=== PATIENT | male | born 1995 ===

== ENCOUNTER 2020-02-11 10:39 | Outpatient (REF) | payer MEDICARE, MEDICAID, SELFPAY | END 2020-02-11 10:40 | disposition home or self-care (01) | LOC: HO.LAB 10:39 | PROVIDERS: Visit Provider Internal Medicine | DX: Z20.828 Contact with and (suspected) exposure to other viral communicable diseases (principal) | CPT/HCPCS: U0003 ==

== ENCOUNTER 2020-11-02 09:39 | Emergency (ER) | payer MEDICARE, MEDICAID, SELFPAY ==
[2020-11-02 09:57] VITALS: BP 122/65; PULSE 71; RESP 16; TEMP 36.7; O2SAT 98; BMI 23.1
[2020-11-02 11:35] LABS: Glucose Urine UA NEG (NEG); Leukocyte Esterase Urine NEG (NEG); Nitrite Urine NEG (NEG); Specific Gravity - Urine 1.015 (1.005-1.025); Urine Blood NEG (NEG); Urine Ketones NEG (NEG); Urine Protein NEG (NEG-TRACE)
[2020-11-02] MEDS: cefTRIAXone sodium 500 MG, Lidocaine HCl 1 % MPF 1 ML IM (11:38)
[2020-11-02 11:51] LABS: Appearance Urine HAZY; Color Urine YELLOW
[2020-11-02 12:07] LABS: Syphilis Screen Nonreactive (Nonreactive)
--- NOTE | 2020-11-02 12:14 | ED_ITS ---
HPI - Male Genitourinary General Chief complaint: Urogenital-Male Stated complaint: groin injury Time Seen by Provider: 11/02/20 10:24 Source: patient Mode of arrival: ambulatory Limitations: no limitations History of Present Illness HPI Narrative: Patient presents to the ED for purple discoloration at the base of the penis. Patient states he had rough sex yesterday and woke up with the purple discoloration at the base of penis. Patient denies any penile pain. Patient denies any blood in urine. Patient denies any penile discharge. Patient denies any testicular pain. Patient states condom broke. Related Data Previous Rx's Medication Instructions Recorded doxycycline hyclate 100 mg PO BID #14 tab 11/02/20 Allergies Allergy/AdvReac Type Severity Reaction Status Date / Time amoxicillin [Amoxicillin] Allergy Unknown RASH ON Verified 11/02/20 09:59 BODY Review of Systems Review of Systems: Yes all other systems are reviewed and are negative Constitutional: Constitutional: Reports as per HPI and Reports no additional constitutional complaints Eyes: Eyes: Reports as per HPI and Reports no additional eye complaints ENT: Reports system reviewed and no additional complaints, except as documented and Reports as per HPI Cardiovascular: Cardiovascular: Reports as per HPI and Reports no additional cardiovascular complaints Respiratory: Respiratory: Reports as per HPI and Reports no additional respiratory complaints Gastrointestinal: Gastrointestinal: Reports as per HPI and Reports no additional gastrointestinal complaints Genitourinary: Genitourinary: Reports no additional male genitourinary complaints and Reports as per HPI Comments: Purple discoloration at base of penis Musculoskeletal: Musculoskeletal: Reports no additional musculoskeletal complaints and Reports as per HPI Neurologic: Reports system reviewed and no additional complaints, except as documented and Reports as per HPI Psychiatric: Psychiatric: Reports no additional psychiatric complaints and Reports as per HPI [facility] Past Medical History Medical History (Updated 11/02/20 @ 12:32 by JUVENCIO Hyman) No known health problems Social History Social History Advance Directives: Yes Advance Directives Information Provided: Yes Advance Directives on File: No Physical Exam Vital Signs: Vital Signs: Last Vital Signs Temp 98.1 F 11/02/20 09:57 Pulse 71 11/02/20 09:57 Resp 16 11/02/20 09:57 BP 122/65 11/02/20 09:57 Pulse Ox 98 11/02/20 09:57 Body Mass Index 23.1 Const: General: cooperative, healthy appearing, comfortable, no acute distress, well developed, alert, awake and Physically active Orientation/consciousness: patient oriented x3 HENMT: Head: Yes normal to inspection, Yes No palpable skull fracture present, Yes normocephalic, Yes atraumatic and No abrasion Eyes: General: appearance normal, both eyes and all related structures Neck: Neck: Yes normal visual inspection, Yes full ROM, Yes no lymphadenopathy, Yes no meningeal signs, Yes trachea midline, Yes supple and No tender Chest: Chest palpation & inspection: normal inspection of the chest and normal palpation of entire chest wall Resp: Effort & Inspection: normal respiratory effort and able to speak in complete sentences Cardio: Jugular venous distension: no JVD Heart sounds: S1 normal heart sound present and S2 normal heart sound present GI: Inspection: Yes normal to inspection and No abdominal wall ecchymosis Palpation (GI): Soft to palpation, not firm, nontender, no guarding and not rigid : General: Yes Bimanual renal exam normal bilaterally, No bladder normal to inspection, No CVA tenderness and Yes no CVA tenderness Male General Exam: Yes ecchymosis (Small circular area of ecchymosis on base of penis pain) and No Genital lesions present Penis: uncircumcised, no condylomata, ecchymosis (Small circular area at base of penis.), not edematous, not erythematous, no masses, no nodules, no papules, no pustules, no vesicles, foreskin retracts, no paraphimosis, no phimosis, no swelling, no ulcerations and No Genital lesions present Meatus: meatus normal Scrotum: scrotum normal Testes: Testes normal Male genitals images: 1. Small area of ecchymosis at the base of the penis is that is nontender. Penis is not swollen. The penis negative for any ecchymosis, lesions, redness, vesicular lesions, papules, Chancre, ulcerated lesions, or groin lymphadenopathy. Scrotum testicles normal. Penis negative for deformity. Back/Spine/Pelvis: Back: no CVA tenderness, No CVA tenderness and No back tenderness Skin: General skin exam: no rashes or lesions noted and elasticity normal Neuro: General: patient oriented x3, gait normal, no meningeal signs and CN's II-XI intact bilaterally Cranial nerves: Yes CN's II-XII intact bilaterally Extrem: General: Yes normal to inspection and Yes full ROM Psych: Appearance: grossly normal, well kempt and not disheveled Course Course Course Narrative: History physical exam indicates ecchymosis on penis to trauma but not concerned for penile fracture. Penis is not swollen or deformed. Patient has concern for STD due to condom breaking and continued to have sex without condoms. Reevaluation(s) Reevaluation #1: History physical exam does not indicate syphilis, LGV, chancroid, or herpes, but will send for RPR, HSV, CTNG. Ceftriaxone ordered. Patient will be sent for prescription for doxycycline. Patient informed to follow-up with [facility] for HIV testing due to unprotected sexual exposure. Patient educated on HIV prophylaxis window. Time: 12:30 MDM - Male Genitourinary MDM Narrative Medical decision making narrative: Penile contusion Lab Data Labs: Lab Results 11/02/20 11/02/20 11/02/20 Range/Units 11:14 11:14 11:14 Urine Color YELLOW Urine Appearance HAZY Urine pH 7.0 (5.0-8.0) Ur Specific [place] 1.015 (1.005-1.025) Urine Protein NEG (NEG-TRACE) MG/DL Urine Glucose (UA) NEG (NEG) MG/DL Urine Ketones NEG (NEG) MG/DL Urine Blood NEG (NEG) Urine Nitrite NEG (NEG) Ur Leukocyte Esterase NEG (NEG) T.pallidum Ab (EIA) Nonreactive (Nonreactive) Chlam trachomat DNA PCR NOT DETECTED (Not Detect.) N.gonorrhoeae DNA (PCR) NOT DETECTED (Not Detect.) Discharge Plan Discharge Clinical Impression: Contusion Patient Disposition: Home, Self-Care Instructions: Safe Sex Practices (ED), Contusion in Adults (ED) Additional Instructions: Return to the ED immediately for penile swelling, blood in urine, testicular pain, worsening bruising, penile lesions, penile discharge, abdominal pain, flank pain, fever, chills, or any other concerning symptoms. Prescriptions: New doxycycline hyclate 100 mg tablet 100 mg PO BID Qty: 14 RF: 0 Interventions: ED Discharge Assessment Last Done: 11/02/20 12:40 Discharge Date/Time: 11/02/20 12:52 Print Language: Persian
[2020-11-02 13:44] LABS: CT PCR NOT DETECTED (Not Detect.); NG PCR NOT DETECTED (Not Detect.)
== END 2020-11-02 12:52 | disposition home or self-care (01) ==
PROVIDERS: Physician Assistant; Emergency Provider Emergency Medicine Emergency Medical Services
DX: S30.21XA Contusion of penis, initial encounter (principal); X50.3XXA Overexertion from repetitive movements, initial encounter; Y93.89 Activity, other specified; Y92.9 Unspecified place or not applicable; Y99.9 Unspecified external cause status; Z11.3 Encounter for screening for infections with a predominantly sexual mode of transmission
CPT/HCPCS: 36415; 81003; 86780; 87255; 87491; 87591; 96372; 99283; 99284; J0696

== ENCOUNTER 2020-11-17 18:22 | Emergency (ER) | payer MEDICARE, MEDICAID, SELFPAY ==
[2020-11-17 19:19] VITALS: BP 115/62; PULSE 68; RESP 16; TEMP 36.8; O2SAT 100; BMI 23.8
--- NOTE | 2020-11-17 20:38 | ED_ITS ---
HPI - Ear Problem General Chief complaint: Ear Problems Stated complaint: Pain in left ear Time Seen by Provider: 11/17/20 20:31 Source: patient Mode of arrival: ambulatory Limitations: no limitations History of Present Illness HPI Narrative: Patient presents to ED for left ear pain. Patient states recently [place] and now having left ear pain. Patient denies any drainage from left ear, blood, fever, or chills. Related Data Previous Rx's Medication Instructions Recorded doxycycline hyclate 100 mg tablet 100 mg PO BID #14 tab 11/02/20 carbamide peroxide 6.5 % ear drops 5 drp OTIC (EAR) LEFT Q12H 4 Days 11/17/20 (Debrox) #18 ml cefuroxime axetil 500 mg tablet 500 mg PO Q12H 7 Days #14 tab 11/17/20 Allergies Allergy/AdvReac Type Severity Reaction Status Date / Time amoxicillin [Amoxicillin] Allergy Unknown RASH ON Verified 11/17/20 19:23 BODY Review of Systems Review of Systems: Yes all other systems are reviewed and are negative Constitutional: Constitutional: Reports as per HPI and Reports no additional constitutional complaints Eyes: Eyes: Reports as per HPI and Reports no additional eye complaints ENT: Reports system reviewed and no additional complaints, except as documented and Reports as per HPI Cardiovascular: Cardiovascular: Reports as per HPI and Reports no additional cardiovascular complaints Respiratory: Respiratory: Reports as per HPI and Reports no additional respiratory complaints Gastrointestinal: Gastrointestinal: Reports as per HPI and Reports no additional gastrointestinal complaints Genitourinary: Genitourinary: Reports no additional male genitourinary complaints and Reports as per HPI Musculoskeletal: Musculoskeletal: Reports no additional musculoskeletal complaints and Reports as per HPI Integumentary/Breasts: Skin/Breast: Reports system reviewed and no additional complaints, except as docu and Reports as per HPI Neurologic: Reports system reviewed and no additional complaints, except as documented and Reports as per HPI Psychiatric: Psychiatric: Reports no additional psychiatric complaints and Reports as per HPI PMFSH Past Medical History Medical History (Updated 11/17/20 @ 20:52 by JUVENCIO Hyman) No known health problems Social History Social History Advance Directives: No Advance Directives Information Provided: No Physical Exam Vital Signs: Vital Signs: Last Vital Signs Temp 98.2 F 11/17/20 19:19 Pulse 68 11/17/20 19:19 Resp 16 11/17/20 19:19 BP 115/62 11/17/20 19:19 Pulse Ox 100 11/17/20 19:19 Body Mass Index 23.8 Const: General: cooperative, healthy appearing, comfortable, no acute distress, well developed, alert, awake and Physically active Orientation/consciousness: patient oriented x3 HENMT: Other: Left ear: Left ear external canal negative for any erythema, pus discharge, or swelling. Not able to visualize tympanic membrane due to a block of cerumen impaction. Head: Yes normal to inspection, Yes No palpable skull fracture present, Yes normocephalic and Yes atraumatic Ears: hearing grossly normal bilaterally, external ears normal, TM's normal bilaterally, TM normal on the right, EAC's normal, mastoids normal and no periauricular adenopathy Eyes: General: appearance normal, both eyes and all related structures Neck: Neck: Yes normal visual inspection, Yes full ROM, Yes no lymphadenopathy, Yes no meningeal signs, Yes trachea midline, Yes supple and No tender Chest: Chest palpation & inspection: normal inspection of the chest and normal palpation of entire chest wall Resp: Effort & Inspection: normal respiratory effort and able to speak in complete sentences Auscultation: clear to auscultation bilaterally Cardio: Jugular venous distension: no JVD Heart sounds: S1 normal heart sound present and S2 normal heart sound present GI: Inspection: Yes normal to inspection and No abdominal wall ecchymosis Palpation (GI): Soft to palpation, not firm, nontender and no guarding : General: No CVA tenderness and Yes no CVA tenderness Back/Spine/Pelvis: Back: no CVA tenderness, No CVA tenderness and No back tenderness Skin: General skin exam: no rashes or lesions noted and elasticity normal Neuro: General: patient oriented x3, no meningeal signs and CN's II-XI intact bilaterally Cranial nerves: Yes CN's II-XII intact bilaterally Extrem: General: Yes normal to inspection and Yes full ROM Psych: Appearance: grossly normal, well kempt and not disheveled Course Course Course Narrative: Ear pain. Reevaluation(s) Reevaluation #1: Patient will be discharged with Debrox for the inner cerumen impaction. Patient will be discharged with oral antibiotics due to swimming and having left ear pain. Physical exam not indicating otitis externa. But cannot rule out otitis media. Time: 20:50 MDM - Ear MDM Narrative Medical decision making narrative: 20:50 Discharge Plan Discharge Clinical Impression: Otitis media, Cerumen impaction Patient Disposition: Home, Self-Care Instructions: Ear Infection (ED) Additional Instructions: You will be discharged with oral antibiotics. Recommend completing course of oral antibiotics 1st before using Debrox. Return to the ED for any swelling or redness in front/behind ear, severe pain, ear discharge, headache, fever, chills, dizziness, or any other concerning symptoms. Please follow-up with PCP Prescriptions: New cefuroxime axetil 500 mg tablet 500 mg PO Q12H 7 Days Qty: 14 RF: 0 carbamide peroxide [Debrox] 6.5 % drops 5 drp otic (ear) left Q12H 4 Days Qty: 18 RF: 0 No Action doxycycline hyclate 100 mg tablet 100 mg PO BID Qty: 14 RF: 0 Interventions: ED Discharge Assessment Last Done: 11/17/20 21:13 Discharge Date/Time: 11/17/20 21:14 Print Language: Armenian
== END 2020-11-17 21:14 | disposition home or self-care (01) ==
PROVIDERS: Emergency Provider Emergency Medicine
DX: H66.92 Otitis media, unspecified, left ear (principal); H61.22 Impacted cerumen, left ear
CPT/HCPCS: 99283

== ENCOUNTER 2021-10-18 14:03 | Emergency (ER) | payer MEDICARE, MEDICAID, SELFPAY ==
[2021-10-18 16:35] VITALS: BP 117/66; PULSE 61; RESP 16; TEMP 36.6; O2SAT 99; BMI 26.2
--- NOTE | 2021-10-18 16:42 | ED_ITS ---
HPI - Wound/Laceration General Chief Complaint: Wound/Laceration Stated Complaint: infected tattoo right thigh Time Seen by Provider: 10/18/21 16:42 Source: patient Mode of arrival: ambulatory Limitations: no limitations History of Present Illness HPI narrative: 26-year-old male presents to the ER with redness, pain, swelling of a tattoo to his right anterior thigh that his cousin did 9 days ago. He had 2 other tattoos was left upper extremity at a professional shop about 3 weeks ago and a healed appropriately. The tattoo to his right anterior thighs started getting red, irritated and pain fall a few days after it was done. He is concerned about infection. There is also some scabbing and he reports some foul discharge acute days ago. No fever or chills. No red streaking down the leg. Onset (ago): day(s) Extremity Location: right: thigh Place: home Patient tetanus UTD: Yes Context: accidental Associated symptoms: pain Related Data Previous Rx's Medication Instructions Recorded cephalexin 500 mg capsule 500 mg PO Q6H 7 days #28 caps 10/18/21 doxycycline hyclate 100 mg tablet 100 mg PO BID #14 tabs 10/18/21 Allergies Allergy/AdvReac Type Severity Reaction Status Date / Time amoxicillin [Amoxicillin] Allergy Unknown RASH ON Verified 02/17/21 09:13 BODY Review of Systems Review of Systems: Constitutional: No Fever, No Chills Cardiovascular: No Chest Pain, No SOB Respiratory: No Cough, No Sputum Gastrointestinal: No Nausea, No Vomiting, No abdominal Pain Musculoskeletal: No joint pain, No Myalgias Skin: + Skin Lesions, No rash, +Skin erythema surrounding the tattoo Neuro: No Weakness, No Numbness, No Dizziness, No Headache Heme/Lymph: No Bruising, No Lymphadenopathy PMFSH Past Medical History Medical History (Updated 10/18/21 @ 16:47 by JUVENCIO Cook) No known health problems Surgical History (Updated 02/17/21 @ 09:16 by LIZA Sanchez) No pertinent past surgical history Family History Family History (Updated 02/17/21 @ 09:16 by LIZA Sanchez) Mother No problems noted. Father No problems noted. Social History Social History (Updated 02/17/21 @ 09:17 by LIZA Sanchez) Housing: Apartment Alcohol intake: current Alcohol intake frequency: a few times a month Patient Tobacco Use Status: Never used Tobacco e-Cigarette/Vaping Use: Never Used Second Hand Smoke Exposure: No Substance Use Type: Marijuana service: No Current occupational status: unemployed Cognitive needs: No Hearing needs: No Vision needs: No Physical Exam Vital Signs: Vital Signs: Last Vital Signs Temp 97.8 F 10/18/21 16:35 Pulse 61 10/18/21 16:35 Resp 16 10/18/21 16:35 BP 117/66 10/18/21 16:35 Pulse Ox 99 10/18/21 16:35 O2 Del Method 10/18/21 16:35 BMI result Body Mass Index 26.2 Appearance: Alert. Oriented X3. No acute distress. HEENT: normal inspection CVS: Normal heart rate and rhythm. Pulses normal. Respiratory: No respiratory distress. Skin: Skin warm and dry. Normal skin color. Normal skin turgor. No rashes. Extremities: Black tattoo of the distal right anterior thigh, with raised ink and surrounding erythema and warmth. Scabbing centrally without any purulent discharge. There is skin peeling and dryness. No lymphangitis. No inguinal lymphadenopathy. Neuro: Oriented X 3. Grossly normal, nonfocal Course Course Course Narrative: 26-year-old male presents to the ER for evaluation of a tattoo infection that was done in the home. Clinical presentation and examination are consistent with the cellulitis. Will need to treat for community-acquired MRSA with doxy cycline as well as Keflex. No systemic signs of infection at this time. Patient was counseled on signs and symptoms of worsening infection and need to return to the emergency department if symptoms worsen. At this time is stable for discharge home with oral antibiotics and outpatient follow-up. He will call his PCP this week for follow-up. Discharge Plan Discharge Clinical Impression: Cellulitis Patient Disposition: Home, Self-Care Instructions: Cellulitis (ED) Additional Instructions: Take the prescribed antibiotics as directed. Recommend topical antibiotics white man as well like Neosporin. While you're on doxycycline, you cannot be in the sun. Your outside make sure wearing SPF 30 or greater. Interaction with the sun while on this antibiotic can cause a rash. Do not swim and likes the broderick will your wound is healing. Do not pick at the scabs. If you develop new or worsening symptoms call 911 or come back to the ER for further evaluation. Prescriptions: New cephalexin 500 mg capsule 500 mg PO Q6H 7 Days Qty: 28 0RF doxycycline hyclate 100 mg tablet 100 mg PO BID Qty: 14 0RF
== END 2021-10-18 17:32 | disposition home or self-care (01) ==
PROVIDERS: Emergency Provider Internal Medicine
DX: S71.111A Laceration without foreign body, right thigh, initial encounter (principal); L03.115 Cellulitis of right lower limb; X58.XXXA Exposure to other specified factors, initial encounter; Y93.9 Activity, unspecified; Y92.9 Unspecified place or not applicable; Y99.9 Unspecified external cause status; Z79.899 Other long term (current) drug therapy
CPT/HCPCS: 99282; 99283

== ENCOUNTER 2021-12-01 10:20 | Emergency (ER) | payer MEDICARE, MEDICAID, SELFPAY ==
[2021-12-01 10:25] VITALS: BP 121/72; PULSE 78; RESP 19; TEMP 36.6; O2SAT 100; BMI 27.0
--- NOTE | 2021-12-01 12:17 | ED_ITS ---
HPI - Dental/Oral General Chief complaint: Dental/Oral Stated complaint: cracked tooth Time Seen by Provider: 12/01/21 12:09 Source: patient Mode of arrival: ambulatory Limitations: no limitations History of Present Illness MD Complaint: tooth pain and tooth injury Location: Tooth # (17) Onset (ago): day(s) (2) Duration: constant Severity: severe Relieving factors: nothing Exacerbating factors: chewing, cold, heat and drinking fluids Context: trauma (mechanism) (cracked tooth on something he was eating) Associated symptoms: gum swelling Treatment prior to arrival: none Related Data Previous Rx's Medication Instructions Recorded cephalexin 500 mg capsule 500 mg PO Q6H 7 days #28 caps 10/18/21 doxycycline hyclate 100 mg tablet 100 mg PO BID #14 tabs 10/18/21 clindamycin HCl 300 mg capsule 300 mg PO TID 7 days #21 caps 12/01/21 ibuprofen 600 mg tablet 600 mg PO Q6H PRN pain #30 tabs 12/01/21 tramadol 50 mg tablet 50 mg PO TID PRN pain #10 tabs 12/01/21 Allergies Allergy/AdvReac Type Severity Reaction Status Date / Time amoxicillin [Amoxicillin] Allergy Unknown RASH ON Verified 02/17/21 09:13 BODY Review of Systems Review of Systems: Constitutional : No Fever, No Chills ENT/Mouth : No swallowing difficulty, no change in voice, positive dental pain, positive jaw pain, no facial swelling Eyes: No Eye Pain, No Swelling Cardiovascular : No Chest Pain, No SOB Respiratory : No Cough, No Sputum Gastrointestinal : No Nausea, No Vomiting, No Diarrhea Genitourinary : No Dysuria Musculoskeletal : No Myalgias Skin : No rash Neuro : No Weakness, No Numbness, No Headache PMFSH Past Medical History Medical History No known health problems Surgical History (Updated 02/17/21 @ 09:16 by LIZA Sanchez) No pertinent past surgical history Family History Family History (Updated 02/17/21 @ 09:16 by LIZA Sanchez) Mother No problems noted. Father No problems noted. Social History Social History Housing: Apartment Alcohol intake: current Alcohol intake frequency: a few times a month Patient Tobacco Use Status: Never used Tobacco e-Cigarette/Vaping Use: Never Used Second Hand Smoke Exposure: No Substance Use Type: Marijuana Advance Directives: No Advance Directives Information Provided: No service: No Current occupational status: unemployed Cognitive needs: No Hearing needs: No Vision needs: No Physical Exam Vital Signs: Vital Signs: Last Vital Signs Temp 98 F 12/01/21 10:25 Pulse 78 12/01/21 10:25 Resp 19 12/01/21 10:25 BP 121/72 12/01/21 10:25 Pulse Ox 100 12/01/21 10:25 O2 Del Method 12/01/21 10:25 BMI result Body Mass Index 27.0 Appearance: Alert. Oriented X3. No acute distress. Eyes: Pupils equal, round and reactive to light. ENT: L lower last molar moderate decay, surrounding erythema and mild fluctuance no chucho abscess, no trismus no signs of deeper infection Neck: Normal inspection. Neck supple. CVS: Pulses normal. Respiratory: No respiratory distress. Abdomen: atraumatic Skin: Skin warm and dry. Normal skin color. Normal skin turgor. Extremities: normal gait Neuro: Oriented X 3. No motor deficit. No sensory deficit. MDM - Dental/Oral MDM Narrative Medical decision making narrative: 26 yo male otherwise healthy here with c/o cracked tooth two days ago no signs of deeper space infection - has dentist appointment next week tooth is very dec ayed with surrounding inflammation but no chucho abscess- start on clindamycin, motrin, tramadol (no hx of seizures). refer to dentist Discharge Plan Discharge Clinical Impression: Dental caries, Fracture of tooth Patient Disposition: Home, Self-Care Instructions: Acute Dental Trauma (ED), Toothache (ED) Additional Instructions: return to ED for any worsening symptoms or concerns follow up with your dentist as scheduled Prescriptions: New ibuprofen 600 mg tablet 600 mg PO Q6H PRN (Reason: pain) Qty: 30 0RF clindamycin HCl 300 mg capsule 300 mg PO TID 7 Days Qty: 21 0RF tramadol 50 mg tablet 50 mg PO TID PRN (Reason: pain) Qty: 10 0RF Rx Instructions: partial fill is okay at patient's request No Action cephalexin 500 mg capsule 500 mg PO Q6H 7 Days Qty: 28 0RF doxycycline hyclate 100 mg tablet 100 mg PO BID Qty: 14 0RF Stand Alone Forms: Work/School Release
== END 2021-12-01 12:35 | disposition home or self-care (01) ==
PROVIDERS: Emergency Provider Emergency Medicine
DX: K03.81 Cracked tooth (principal); K02.9 Dental caries, unspecified; Z79.899 Other long term (current) drug therapy
CPT/HCPCS: 99282; 99283

== ENCOUNTER 2022-08-01 08:29 | Emergency (ER) | payer OTHER, SELFPAY ==
[2022-08-01 08:34] VITALS: BP 121/77; PULSE 78; RESP 18; TEMP 36.8; O2SAT 98; BMI 25.7
--- NOTE | 2022-08-01 08:51 | ED_ITS ---
Patient evaluated by me as well, patient with injury to left eye. Fluorescein exam revealed some uptake that was reticular and nature of the cornea. The rest visit slit-lamp exam was unremarkable. Patient will be started on topical antibiotics. He will be referred to Ophthalmology. HPI - Eye Problem General Chief complaint: Eye Problems Stated complaint: battery acid in eye work related Time Seen by Provider: 08/01/22 08:35 Source: patient and RN notes reviewed Mode of arrival: ambulatory Limitations: no limitations History of Present Illness HPI Narrative: This is a 26-year-old male who presents to the emergency department today with complaints of battery acid exposure to left eye which occurred just prior to arrival. Patient reports that he was scraping battery acid off of the head. W hen suddenly a krista of dried battery acid came up into his left eye. He immediately flushes left eye now for 15-20 minutes with water at work. He states that he has had a burning sensation in his left eye with associated blurred vision since the incident. He does not wear contact lenses. Denies history of similar instances in the past. Denies any other complaints or concerns at this time. MD chief complaint: eye pain, eye injury, vision change and foreign body Onset (ago): minute(s) Onset description: sudden Duration: constant Location: left eye Eye Symptoms: burning, pain, foreign body sensation and blurry vision Place: work Mechanism: chemical exposure Severity: moderate If Pain, Quality: burning Context: trauma Associated symptoms: none Treatments Prior to Arrival: irrigated eye Related Data Previous Rx's Medication Instructions Recorded cephalexin 500 mg capsule 500 mg PO Q6H 7 days #28 caps 10/18/21 doxycycline hyclate 100 mg tablet 100 mg PO BID #14 tabs 10/18/21 clindamycin HCl 300 mg capsule 300 mg PO TID 7 days #21 caps 12/01/21 ibuprofen 600 mg tablet 600 mg PO Q6H PRN pain #30 tabs 12/01/21 tramadol 50 mg tablet 50 mg PO TID PRN pain #10 tabs 12/01/21 erythromycin 5 mg/gram (0.5 %) eye 0.5 inch ophthalmic (eye) TID 7 08/01/22 ointment days #3.5 grams sulfacetamide sodium 10 % eye drops 1 drp ophthalmic (eye) Q3H 7 days 08/01/22 #15 mL Allergies Allergy/AdvReac Type Severity Reaction Status Date / Time amoxicillin [Amoxicillin] Allergy Unknown RASH ON Verified 02/17/21 09:13 BODY Review of Systems Review of Systems: Constitutional: No Weight loss, No Fever, No Chills ENT/Mouth: +blurred vision, +eye burning, No Ear Pain, No Nasal Congestion, No Sinus Pain, No Hoarseness, No sore throat, No Rhinorrhea, No Swallowing Difficulty Cardiovascular: No Chest Pain, No SOB Respiratory: No Cough, No Sputum, No Wheezing Gastrointestinal: No Nausea, No Vomiting, No Diarrhea, No Constipation, No Abdominal pain Genitourinary: No Dysuria, No Urinary Frequency, No Hematuria, No Urinary Incontinence/retention, No Urgency, No Flank Pain Musculoskeletal: No joint pain, No Myalgias, No Joint Swelling Skin: No Skin Lesions, No rash Neuro: No Weakness, No Numbness, No Paresthesias Yes all other systems are reviewed and are negative Constitutional: Constitutional: Reports as per [facility] Past Medical History Attestation statement: The following information was validated with the patient. Medical History No known health problems Surgical History No pertinent past surgical history Family History Family History Mother No problems noted. Father No problems noted. Social History Social History Housing: Apartment Alcohol intake: current Alcohol intake frequency: a few times a month Patient Tobacco Use Status: Never used Tobacco Smoked in Last 30 Days: No e-Cigarette/Vaping Use: Never Used Second Hand Smoke Exposure: No Use of substances other than those prescribed or required for medical reasons: Yes Substance Use Type: Marijuana Advance Directives: No Advance Directives Information Provided: Yes service: No Current occupational status: unemployed Cognitive needs: No Hearing needs: No Vision needs: No Physical Exam Vital Signs: Vital Signs: Last Vital Signs Temp 98.2 F 08/01/22 08:34 Pulse 78 08/01/22 08:34 Resp 18 08/01/22 08:34 BP 121/77 08/01/22 08:34 Pulse Ox 98 04/24/23 08:34 O2 Del Method Room Air 08/01/22 08:34 BMI result Body Mass Index 25.7 Const: General: cooperative, comfortable and no acute distress Orientation/consciousness: patient oriented x3 Limitations: no limitations HEENT: Head: Yes normal to inspection, Yes normocephalic and Yes atraumatic Ears: hearing grossly normal bilaterally General nose exam: Normal external nose present Face and sinus: Yes normal facial exam Mouth: Normal oral and palatal mucosa present, oropharynx normal and moist mucous membranes Throat: Yes posterior oropharynx normal Eyes: Other: Left eye, conjunctiva is noninjected, no foreign body to the left cornea visible to the naked eye. Fluroescein exam revealing : diffuse fluorescein uptake overlying the corneal, no obvious ulcerations or foreign body present. General: appearance normal, both eyes and all related structures Eyelids: Yes eyelids normal Conjunctivae: conjunctivae normal Sclerae: sclerae normal Pupils: Equal, round and reactive pupils present EOM: EOMs intact bilaterally Neck: Neck: Yes normal visual inspection, Yes full ROM and Yes no lymphadenopathy Lymphatic: no lymphadenopathy noted Chest: Chest palpation & inspection: normal inspection of the chest Resp: Effort & Inspection: normal respiratory effort and able to speak in complete sentences Auscultation: clear to auscultation bilaterally, no crackles, no rales, no rhonchi and no wheezes Cardio: Rate: regular rate Rhythm: regular rhythm Heart sounds: S1 normal heart sound present and S2 normal heart sound present GI: Inspection: Yes normal to inspection Skin: General skin exam: no rashes or lesions noted Trauma: no lacerations or abrasions Wounds: no wounds Neuro: General: patient oriented x3 and moves all extremities Cranial nerves: Yes Equal, round and reactive pupils present Extrem: General: Yes normal to inspection Right upper extremity: normal to inspection Left upper extremity: normal to inspection Right lower extremity: normal to inspection Left lower extremity: normal to inspection Course Reevaluation(s) Reevaluation #1: Dr. Real had returned phone call, recommended erythromycin ointment TID x 7 days. Medication sent to pharmacy. Advised to follow up in his office this week. Advised to call to make an appointment. Left detailed voicemail with these instructions per pt's request. Time: 12:04 Medications Administered Discontinued Medications Generic Name Dose Route Start Last Admin Trade Name Freq PRN Reason Stop Dose Admin Fluorescein Sodium 1 strip 08/01/22 09:03 08/01/22 09:48 Fluorescein Sodium Strip EYE-LEFT 08/01/22 09:04 1 strip ONCE ONE Administration Tetracaine HCl 1 drop 08/01/22 09:03 08/01/22 09:48 Tetracaine Hcl/Pf 0.5% Oph Judy 4 Ml Drops EYE-LEFT 08/01/22 09:04 1 drop ONCE ONE Administration Medical Decision Making Medical Decision Making MDM Narrative: 26-year-old male presents for evaluation left eye burning and blurred vision status post battery acid exposure. Upon arrival, patient is flushing his eye in the eyewash. pH is 7. Patient reporting blurred vision and burning sensation in his left eye. No hx of contact use. After eyeflush, patient's eye no longer burn ing but still has blurred vision, unable to perform visual acuity. Slit lamp examination performed with Dr. Barrow, diffuse fluoresceine uptake noted throughout the cornea. Repeat pH 7. Will treat with bleph-10 antibiotic eye drops and follow up with Dr. Hercules. Dr. Hercules currently in OR and have page out to him at this time. Advised that we will call patient later at [phone] for further instructions and follow up. Urged patient to return with any concerns. Differential Diagnosis Differential Diagnoses: The differential diagnosis associated with the presentation includes Chemical exposure left eye, iritis, corneal abrasion, corneal laceration, conjunctivitis Admission/Observation Consideration of admission/observation: Escalation of care including admission/observation considered Prescription Management I considered prescription management with: Antibiotic Procedures Procedure Narrative Procedure Narrative: Javier lens flush. 2 drops of proparacaine instilled in left eye. Fluoresceine stain achieved. See PE for findings. Patient tolerated well without complications. Discharge Plan Discharge Clinical Impression: Abrasion, corneal, Chemical exposure of eye Patient Disposition: Home, Self-Care Instructions: Corneal Abrasion (ED) Additional Instructions: Please use antibiotic eyedrops as directed. You will receive a call later with further instructions from Dr. Hercules (eye physician) Please always wear safety glasses while handling harsh chemicals. Please follow-up with Dr. Hercules for further guidance. Any new or worsening symptoms occur please return for re-evaluation. Prescriptions: New sulfacetamide sodium 10 % drops 1 drp ophthalmic (eye) Q3H 7 Days Qty: 15 0RF erythromycin 5 mg/gram (0.5 %) ointment 0.5 inch ophthalmic (eye) TID 7 Days Qty: 3.5 0RF No Action cephalexin 500 mg capsule 500 mg PO Q6H 7 Days Qty: 28 0RF doxycycline hyclate 100 mg tablet 100 mg PO BID Qty: 14 0RF ibuprofen 600 mg tablet 600 mg PO Q6H PRN (Reason: pain) Qty: 30 0RF clindamycin HCl 300 mg capsule 300 mg PO TID 7 Days Qty: 21 0RF tramadol 50 mg tablet 50 mg PO TID PRN (Reason: pain) Qty: 10 0RF Rx Instructions: partial fill is okay at patient's request Referrals: Kyle Hercules [Physician] - Stand Alone Forms: Work/School Release Interventions: ED Discharge Assessment Last Done: 08/01/22 11:25 Discharge Date/Time: 08/01/22 11:26
[2022-08-01] MEDS: Fluorescein Sodium STRIP 1 STRIP EYE-LEFT (09:48)
[2022-08-01] MEDS: Tetracaine HCl/PF 0.5% Oph Sol 4 ML DROPS 1 DROP EYE-LEFT (09:48)
== END 2022-08-01 11:26 | disposition home or self-care (01) ==
PROVIDERS: Emergency Provider Emergency Medicine
DX: S05.02XA Injury of conjunctiva and corneal abrasion without foreign body, left eye, initial encounter (principal); T54.2X1A Toxic effect of corrosive acids and acid-like substances, accidental (unintentional), initial encounter; Y92.59 Other trade areas as the place of occurrence of the external cause; Y93.89 Activity, other specified; Y99.0 Civilian activity done for income or pay
CPT/HCPCS: 99284

== ENCOUNTER → 2022-08-03 09:39 | Outpatient (BNVA) | payer OTHER, SELFPAY | PROVIDERS: Visit Provider Physician Assistant | DX: S05.02XA Injury of conjunctiva and corneal abrasion without foreign body, left eye, initial encounter (principal); T54.2X1A Toxic effect of corrosive acids and acid-like substances, accidental (unintentional), initial encounter; T26.62XA Corrosion of cornea and conjunctival sac, left eye, initial encounter | CPT/HCPCS: 99203 ==

== ENCOUNTER 2022-12-18 19:08 | Emergency (ER) | payer MEDICARE, SELFPAY ==
[2022-12-18 19:37] VITALS: BP 116/69; PULSE 96; RESP 16; TEMP 37.2; O2SAT 97; BMI 25.0
--- NOTE | 2022-12-18 19:37 | ED_ITS ---
HPI - Skin/Abscess/Foreign Bdy General Chief complaint: Allergic Reaction Stated complaint: knee/elbow infection Source: patient Mode of arrival: ambulatory Limitations: no limitations History of Present Illness HPI narrative: Patient is a 27-year-old male who presents emergency department for evaluation of a rash to the bilateral knees and elbows with onset over the past few days. He reports that the rash is mildly itchy, painful described as a discomfort. Reports subjective tactile fever, denies chills. Denies additional skin lesions/rashes, chest pain, shortness of breath, difficulty breathing, nausea, vomiting, abdominal pain. Denies any recent antibiotic usage. Denies any history of skin conditions including eczema Related Data Previous Rx's Medication Instructions Recorded cephalexin 500 mg capsule 500 mg PO Q6H 7 days #28 caps 10/18/21 doxycycline hyclate 100 mg tablet 100 mg PO BID #14 tabs 10/18/21 clindamycin HCl 300 mg capsule 300 mg PO TID 7 days #21 caps 12/01/21 ibuprofen 600 mg tablet 600 mg PO Q6H PRN pain #30 tabs 12/01/21 tramadol 50 mg tablet 50 mg PO TID PRN pain #10 tabs 12/01/21 erythromycin 5 mg/gram (0.5 %) eye 0.5 inch ophthalmic (eye) TID 7 08/01/22 ointment days #3.5 grams sulfacetamide sodium 10 % eye drops 1 drp ophthalmic (eye) Q3H 7 days 08/01/22 #15 mL cephalexin 500 mg capsule 500 mg PO QID #28 caps 12/18/22 doxycycline hyclate 100 mg capsule 100 mg PO BID #14 caps 12/18/22 Allergies Allergy/AdvReac Type Severity Reaction Status Date / Time amoxicillin [Amoxicillin] Allergy Unknown RASH ON Verified 12/18/22 19:36 BODY Review of Systems Review of Systems: Yes all other systems are reviewed and are negative [facility] Past Medical History Attestation statement: The following information was validated with the patient. Source: old records reviewed Medical History No known health problems Surgical History No pertinent past surgical history Family History Family History Mother No problems noted. Father No problems noted. Social History Social History Housing: Apartment Alcohol intake: current Alcohol intake frequency: a few times a month Patient Tobacco Use Status: Never used Tobacco e-Cigarette/Vaping Use: Never Used Second Hand Smoke Exposure: No Substance Use Type: Marijuana service: No Current occupational status: unemployed Cognitive needs: No Hearing needs: No Vision needs: No Physical Exam Vital Signs: Appearance: Alert.?Oriented to person, place and time. No acute distress.?Normal affect. Neck: Normal inspection.? Neck supple.?? CVS: Heart sounds normal. Normal heart rate and rhythm.? Pulses normal.?? Respiratory: No respiratory distress.? Lung sounds clear to auscultation bilaterally?? Abdomen: Soft and non-tender. Skin: Skin warm and dry.? Normal skin color.? Pustular rash to the bilateral knees and elbows with erythematous base. Full AROM is intact to all joints. Extremities: No lower extremity edema.? Neuro: Moves all extremities spontaneously. Sensation intact bilaterally. Ambulates with normal steady gait. Medical Decision Making Medical Decision Making MDM Narrative: Patient is a 27-year-old male who presents emergency department for evaluation of rash to the bilateral knees and elbows as per HPI. Upon physical examination there is a pustular rash with erythematous base, joints themselves are without erythema, warmth, swelling to suggest a septic arthritis, and full AROM is present. Extremities are neurovascularly intact distally. Denies any history of similar in the past. Examination concerning for contact dermatitis versus staph infection. Not consistent with erysipelas. He has been applying topical antibiotic ointment without improvement. Overall he is well-appearing, without signs of systemic illness, denies recreational drug usage. At this time feel that he is stable for discharge home, will treat with Keflex and doxycycline, discussed worrisome signs and symptoms that would warrant re-evaluation in the emergency department, all questions answered, stable for discharge. Differential Diagnosis Differential Diagnoses: The differential diagnosis associated with the presentation includes (As noted above) External Record Review External record reviewed: Outpatient record Tests considered The following testing was considered but not selected: Considered serum labs for evaluation of leukocytosis, no signs of systemic toxicity, likely would not change plan of care, therefore labs were deferred. Prescription Management I considered prescription management with: Antibiotic Discharge Plan Discharge Clinical Impression: Cellulitis Patient Disposition: Home, Self-Care Instructions: Cellulitis (ED) Prescriptions: New doxycycline hyclate 100 mg capsule 100 mg PO BID Qty: 14 0RF cephalexin 500 mg capsule 500 mg PO QID Qty: 28 0RF No Action cephalexin 500 mg capsule 500 mg PO Q6H 7 Days Qty: 28 0RF doxycycline hyclate 100 mg tablet 100 mg PO BID Qty: 14 0RF ibuprofen 600 mg tablet 600 mg PO Q6H PRN (Reason: pain) Qty: 30 0RF clindamycin HCl 300 mg capsule 300 mg PO TID 7 Days Qty: 21 0RF tramadol 50 mg tablet 50 mg PO TID PRN (Reason: pain) Qty: 10 0RF Rx Instructions: partial fill is okay at patient's request sulfacetamide sodium 10 % drops 1 drp ophthalmic (eye) Q3H 7 Days Qty: 15 0RF erythromycin 5 mg/gram (0.5 %) ointment 0.5 inch ophthalmic (eye) TID 7 Days Qty: 3.5 0RF Referrals: Physician,None [Primary Care Provider] -
== END 2022-12-18 19:58 | disposition home or self-care (01) ==
PROVIDERS: Emergency Provider Emergency Medicine Emergency Medical Services
DX: L03.115 Cellulitis of right lower limb (principal); L03.116 Cellulitis of left lower limb
CPT/HCPCS: 99282

== ENCOUNTER 2024-09-08 09:15 | Emergency (ER) | payer SELFPAY ==
[2024-09-08 09:17] VITALS: BP 128/74; PULSE 94; RESP 18; TEMP 36.3; O2SAT 97; BMI 26.6
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
[2024-09-08 09:59] VITALS: BP 128/74; PULSE 94; RESP 18; TEMP 36.3; O2SAT 97
== END 2024-09-08 10:00 | disposition home or self-care (01) ==
LOC: HO.ED 09:57
PROVIDERS: Emergency Provider Emergency Medicine
DX: S20.219A Contusion of unspecified front wall of thorax, initial encounter (principal); V43.52XA Car driver injured in collision with other type car in traffic accident, initial encounter; Y93.9 Activity, unspecified; Y92.9 Unspecified place or not applicable; Y99.9 Unspecified external cause status; M54.6 Pain in thoracic spine
CPT/HCPCS: 99283; 99284

== ENCOUNTER 2024-11-25 09:55 | Emergency (ER) | payer SELFPAY ==
[2024-11-25 10:41] VITALS: BP 106/57; PULSE 69; RESP 16; TEMP 37; O2SAT 98; BMI 26.5
--- NOTE | 2024-11-25 10:43 | ED_ITS ---
HPI - Skin/Abscess/Foreign Bdy General Chief complaint: Allergic Reaction Stated complaint: pt states has an allergic reaction Time Seen by Provider: 11/25/24 12:53 Source: patient Mode of arrival: ambulatory Limitations: no limitations History of Present Illness ED Provider: Hamilton Newman HPI narrative: 29 yold male presents to the ED for bilateral itchy rash on face that he woke up with. Patietn took benadryl. patient deneis any lip swelling, fever, chills, shortness of breath, tongue swelling, drooling, change in voice, or sensation of throat closing. Related Data Previous Rx's ?Medication ?Instructions ?Recorded cephalexin 500 mg capsule 500 mg PO Q6H 7 days #28 cap s 10/18/21 doxycycline hyclate 100 mg tablet 100 mg PO BID #14 ta bs 10/18/21 clindamycin HCl 300 mg capsule 300 mg PO TID 7 days #2 1 caps 12/01/21 ibuprofen 600 mg tablet 600 mg PO Q6H PRN pain #30 t abs 12/01/21 tramadol 50 mg tablet 50 mg PO TID PRN pain #10 ta bs 12/01/21 erythromycin 5 mg/gram (0.5 %) eye 0.5 inch ophthalmic (eye) TID 7 08/01/22 ointment days #3.5 grams sulfacetamide sodium 10 % eye drops 1 drp ophthalmic ( eye) Q3H 7 days 08/01/22 #15 mL cephalexin 500 mg capsule 500 mg PO QID #28 caps 12/18 doxycycline hyclate 100 mg capsule 100 mg PO BID #14 c aps 12/18/22 acetaminophen 500 mg tablet 500 mg PO Q6H PRN fever or pain 09/08/24 (Tylenol Extra Strength) #14 tabs cyclobenzaprine 5 mg tablet 5 mg PO Q8H PRN pain (scal e score 09/08/24 7-10) 5 days #14 tabs lidocaine 5 % topical patch 1 patch topical DAILY PRN pain #30 09/08/24 (Lidoderm) ea naproxen 500 mg tablet 500 mg PO BID PRN pain 10 da ys #20 09/08/24 tabs cephalexin 500 mg capsule 500 mg PO QID 7 days #28 cap s 11/25/24 diphenhydramine HCl 25 mg tablet 25 mg PO TID PRN allen rgic reaction 11/25/24 (Benadryl Allergy) #21 tabs prednisone 20 mg tablet 40 mg (2 x 20 mg) PO DAILY 5 days 11/25/24 #10 tabs Allergies Allergy/AdvReac Type Severity Reaction Status Date / Time amoxicillin (Amoxicillin) Allergy Unknown RASH ON Verified 11/25/24 10:45 BODY Review of Systems 2 Review of Systems: faical ichty rash Yes all other systems are reviewed and are negative [facility] Past Medical History Medical History No known health problems Surgical History No pertinent past surgical history Family History Family History Mother No problems noted. Father No problems noted. Social History Social History Housing: Apartment Alcohol intake: current Alcohol intake frequency: a few times a month Patient Tobacco Use Status: Never used Tobacco e-Cigarette/Vaping Use: Never Used Second Hand Smoke Exposure: No Substance Use Type: Marijuana Advance Directives: No Advance Directives Information Provided: Yes service: No Current occupational status: unemployed Cognitive needs: No Hearing needs: No Vision needs: No Physical Exam 2 Vital Signs: Vital Signs: Last Vital Signs Temp 97 F 11/25/24 13:09 Pulse 67 11/25/24 13:09 Resp 16 11/25/24 13:09 BP 116/56 L 11/25/24 13:09 Pulse Ox 97 11/25/24 13:09 O2 Del Method Room Air 11/25/24 13:09 BMI result Body Mass Index 26.5 Const: General: cooperative, healthy appearing, comfortable, no acute distress, well developed, alert, awake and Physically active O rientation/consciousness: patient oriented x3 HEENT: Head: Yes normal to inspection, Yes No palpable skull fracture present, Yes normocephalic and Yes atraumatic Head images: 1. itchy rash. negative for any facial swelling, mass, ecchymosis, vesicular lesions, lip swelling, tongue swelling, trimsus, or change in voice. negative for uvula swelling. 2. itchy rash. negative for any facial s welling, mass, ecchymosis, vesicular lesions, lip swelling, tongue swelling, trimsus, or change in voice. negative for uvula swelling. Throat: Yes posterior oropharynx normal, Yes tonsils normal and Yes uvula midline Eyes: General: appearance normal, both eyes and all related structures Neck: Neck: Yes normal visual inspection, Yes full ROM, Yes no lymphadenopathy, Yes no meningeal signs, Yes trachea midline, Yes supple, No anterior neck swelling and No tender Chest: Chest palpation & inspection: normal inspection of the chest and normal palpation of entire chest wall Resp: Effort & Inspection: normal respiratory effort and able to speak in complete sentences Auscultation: clear to auscultation bilaterally Cardio: Jugular venous distension: no JVD Heart sounds: S1 normal heart sound present and S2 normal heart sound present GI: Inspection: Yes normal to inspection Palpation (GI): Soft to palpation, not firm, nontender, no guarding and not rigid : General: Yes no CVA tenderness Back/Spine/Pelvis: Back: no CVA tenderness and No back tenderness Skin: General skin exam: no rashes or lesions noted, elasticity normal and turgor normal Neuro: General: patient oriented x3, gait normal, tone normal, moves all extremities, Normal light touch and pain sensation, no meningeal signs, no focal motor deficits and CN's II-XI intact bilaterally Extrem: General: Yes normal to inspection, Yes full ROM and Yes capillary refill normal Psych: Appearance: grossly normal, well kempt and not disheveled Course Course Course Narrative: This is a Rapid Medical Examination (RME) performed by Eligio Da Silva PA-C in triage. Full HPI, ROS, assessment and treatment plan per primary provider in the Main ED. Hx: 29 yo M here for concerns of allergic reaction. reports swelling to right side of face on waking yesterday. allergy to pollen, no other known allergies. took benadryl yesterday with some improvement. no N/V/abd pain, difficulty breathing, throat pain. no new meds, abx. PE/vitals: mild right facial swelling, airway patent Plan: labs, viral swabs Medical Decision Making Medical Decision Making MDM Narrative: 29 yold male presents to the ED for ithcy red rash on face. Patient denies any lip swelling, drooling, change in voice, or sore throat. Patient states woke up with facial itchy rash. face negative for swelling or tendenress. positive for red rash. Patient is [facility]. Patient found to be hypoglycemic which improved with orang juice. Patient informed he will need to be at least watched for 4 hours to make sure hypoglycemia does not return, but he refuseed. Patient signed out AMA knowing risks of , sepsis, and decreased quality of life.. Discharged with predinose and bedanryl. Patient explained worrisome signs and informed to return to the ED immdiately. Differential Diagnosis Differential Diagnoses: The differential diagnosis associated with the presentation includes (allergic reaction, cellulitits, hypoglycemia) Admission/Observation Consideration of admission/observation: Escalation of care including admission/observation considered Lab Data MDM Lab Attestation statement: I reviewed the patient's lab results. 11/25/24 10:53 11/25/24 10:53 Labs: Lab Results 11/25/24 11/25/24 Range/Units 10:53 11:58 WBC 9.5 (4.8-10.8) X10*3/uL RBC 4.71 (4.60-5.80) X10*6/uL Hgb 14.4 (14.0-18.0) g/dl Hct 42.0 (42.0-52.0) % MCV 89.2 (80.0-98.0) fL MCH 30.6 (27.0-33.0) pg MCHC 34.3 (31.0-36.0) g/dl RDW 13.3 (11.0-16.0) % Plt Count 240 (160-400) X10*3/uL MPV 10.1 (9.4-12.4) fL Immature Gran % (Auto) 0.3 (0.0-0.4) % Neut % (Auto) 68.8 (45-73) % Lymph % (Auto) 18.6 L (20-40) % [place] % (Auto) 8.0 (2-11) % Eos % (Auto) 3.7 (0-4) % Baso % (Auto) 0.6 (0-2) % Lymph # (Auto) 1.8 (1.2-4.9) X10*3/uL [place] # (Auto) 0.8 (0.1-1.2) X10*3/uL Eos # (Auto) 0.4 (0.0-0.4) X10*3/uL Baso # (Auto) 0.1 (0.0-0.2) X10*3/uL Abs Immat Gran (auto) 0.03 (0.00-0.03) X10*3/uL Absolute Neuts (auto) 6.6 (2.0-8.3) x10*3/uL Absolute Nucleated RBC 0.000 (0.0-0.012) X10*3/uL Nucleated RBC % (auto) 0.0 (0.0-0.2) /100WBC Sodium 140 (135-145) mmol/L Potassium 4.7 (3.3-5.1) mmol/L Chloride 109 H (96-108) mmol/L Carbon Dioxide 24 (22-29) mmol/L Anion Gap 12 (12-20) BUN 8 L (9-16) mg/dL Creatinine 0.70 (0.5-1.4) mg/dL Estim Creat Clear Calc 186.1 Estimated GFR > 60 POC Glucose 139 H (60-115) mg/dL Random Glucose 56 L* (60-115) mg/dL Calcium 9.0 (8.4-10.2) mg/dL Magnesium 1.9 (1.6-2.6) mg/dL Total Bilirubin 0.6 (0.0-1.0) mg/dL AST 28 (5-37) U/L ALT 15 (0-40) U/L Alkaline Phosphatase 51 (39-117) U/L Total Protein 7.0 (6.5-8.0) g/dL Albumin 4.1 (3.5-5.0) g/dL Influenza Type A (PCR) NEGATIVE (Negative) Influenza Type B (PCR) NEGATIVE (Negative) RSV RNA Qual (PCR) NEGATIVE (Negative) SARS-CoV-2 RNA (RT-PCR) NEGATIVE (Negative) Independent Historian Clinical information obtained from an independent historian. History obtained from or confirmed by: Other (patient) Prescription Management I considered prescription management with: Antibiotic and Other (prednisoine, benadryl) Discharge Plan Discharge Clinical Impression: Allergic reaction, Hypoglycemia, Cellulitis Patient Disposition: Left Against Medical Advice Instructions: Cellulitis (ED), Non-diabetic Hypoglycemia (ED), General Allergic Reaction (ED) Additional Instructions: Recommend follow up with PCP. Return to the ED for facial swelling, fever, chills, swelling of lips/tongue, chest pain, shortness of breath, seziure, cramping, facial swelling, altered mental status, or any other concerning symptoms. Prescriptions: New prednisone 20 mg tablet 40 mg PO DAILY 5 Days Qty: 10 0RF cephalexin 500 mg capsule 500 mg PO QID 7 Days Qty: 28 0RF diphenhydramine HCl [Benadryl Allergy] 25 mg tablet 25 mg PO TID PRN (Reason: allergic reaction) Qty: 21 0RF No Action cephalexin 500 mg capsule 500 mg PO Q6H 7 Days Qty: 28 0RF doxycycline hyclate 100 mg tablet 100 mg PO BID Qty: 14 0RF ibuprofen 600 mg tablet 600 mg PO Q6H PRN (Reason: pain) Qty: 30 0RF clindamycin HCl 300 mg capsule 300 mg PO TID 7 Days Qty: 21 0RF tramadol 50 mg tablet 50 mg PO TID PRN (Reason: pain) Qty: 10 0RF Rx Instructions: partial fill is okay at patient's request sulfacetamide sodium 10 % drops 1 drp ophthalmic (eye) Q3H 7 Days Qty: 15 0RF erythromycin 5 mg/gram (0.5 %) ointment 0.5 inch ophthalmic (eye) TID 7 Days Qty: 3.5 0RF doxycycline hyclate 100 mg capsule 100 mg PO BID Qty: 14 0RF cephalexin 500 mg capsule 500 mg PO QID Qty: 28 0RF acetaminophen [Tylenol Extra Strength] 500 mg tablet 500 mg PO Q6H PRN (Reason: fever or pain) Qty: 14 0RF lidocaine [Lidoderm] 5 % adhesive patch,medicated 1 patch topical DAILY MDD remove after 12 hours PRN (Reason: pain) Qty: 30 0RF Rx Instructions: leave on most painful area for up to 12 hrs naproxen 500 mg tablet 500 mg PO BID PRN (Reason: pain) 10 Days Qty: 20 0RF cyclobenzaprine 5 mg tablet 5 mg PO Q8H PRN (Reason: pain (scale score 7-10)) 5 Days Qty: 14 0RF Stand Alone Forms: Against Medical Advice Discharge Date/Time: 11/25/24 13:11 Print Language: Citizen Of [place]
[2024-11-25 11:00] LABS: MANUAL DIFF FLAG NO
[2024-11-25 11:02] LABS: Hematocrit 42.0 % (42.0-52.0); Hemoglobin 14.4 g/dl (14.0-18.0); Imm Gran Abs Auto 0.03 X10*3/uL (0.00-0.03); Imm Gran Pct Auto 0.3 % (0.0-0.4); Lymphocytes Absolute Auto 1.8 X10*3/uL (1.2-4.9); Mean Corpuscular HGB Conc 34.3 g/dl (31.0-36.0); Mean Corpuscular Hemoglobin 30.6 pg (27.0-33.0); Mean Corpuscular Volume 89.2 fL (80.0-98.0); NRBC Abs Auto 0.000 X10*3/uL (0.0-0.012); NRBC Pct Auto 0.0 /100WBC (0.0-0.2); Platelet Count 240 X10*3/uL (160-400); Red Blood Count 4.71 X10*6/uL (4.60-5.80); White Blood Count 9.5 X10*3/uL (4.8-10.8)
[2024-11-25 11:34] LABS: Alanine Aminotransferase 15 U/L (0-40); Albumin Level 4.1 g/dL (3.5-5.0); Alkaline Phosphatase 51 U/L (39-117); Anion Gap 12 (12-20); Aspartate Amino Transferase 28 U/L (5-37); Blood Urea Nitrogen 8 mg/dL (9-16); Calcium 9.0 mg/dL (8.4-10.2); Carbon Dioxide 24 mmol/L (22-29); Chloride 109 mmol/L (96-108); Creatinine Clr Calc Pharmacy 186.1; Estimated Glomerular Filt Rate > 60; Magnesium 1.9 mg/dL (1.6-2.6); Potassium 4.7 mmol/L (3.3-5.1); Sodium 140 mmol/L (135-145); Total Protein 7.0 g/dL (6.5-8.0)
[2024-11-25 11:53] LABS: Resp Syncy Virus RNA Qual PCR NEGATIVE (Negative); SARS COV2 PCR INHOUSE NEGATIVE (Negative)
[2024-11-25 12:02] LABS: Glucose, Whole Blood 139 mg/dL (60-115)
[2024-11-25 13:09] VITALS: BP 116/56; PULSE 67; RESP 16; TEMP 36.1; O2SAT 97
--- OUTSIDE RECORDS SUMMARY | 2024-11-25 13:58 | XMS_ITS | Clinical Summary ---
Author Organization [facility] ity Address [address] [place] [address] Care Team Providers Care Hearing Aide Technician Name Role Phone Unavailable Primary Care Provider Unavailabl e Social History Tobacco Use Types Packs/Day Years Used Date Smoking Tobacco: Never Alcohol Use Standard Drinks/Week Comments Not Currently 0 (1 standard drink = 0.6 oz pur e alcohol) Sex and Gender Information Value Date Recorded Sex Assigned at Not on file Legal Sex Male 9:08 PM EST Gender Identity Not on file Sexual Orientation Not on file Obstetrics History Last Filed Vital Signs Vital Sign Reading Time Taken Comments Blood Pressure 122/70 11/16/2022 1:34 PM EDT Pulse 63 11/16/2022 1:34 PM EDT Temperature - - Respiratory Rate - - Oxygen Saturation - - Inhaled Oxygen Concentration - - Weight 89.8 kg (198 lb) 11/16/2022 1:34 PM EDT Height 190.5 cm (6' 3 ) 11/16/2022 1:34 PM EDT Body Mass Index 24.75 11/16/2022 1:34 PM EDT Plan of Treatment Health Maintenance Due Date Last Done Comments DTaP,Tdap,and Td Vaccines (1 - Tdap) 09/30/2014 Hepatitis B Vaccines (1 of 3 - 19+ 3-dose series) 09/30/2014 HIV Screening 05/05/2023 Hepatitis C Screening 05/05/2023 Social Influencers of Health Screening 05/05/2023 COVID-19 Vaccine (1 - 2023-2 5 season) 2023 Depression Screening 04/10/2024 Influenza Vaccine (#1) 2024 HIB Vaccines Aged Out No longer eligi ble based on patient's age to complete this topic HPV Vaccines Aged Out No longer eligi ble based on patient's age to complete this topic Hepatitis A Vaccines Aged Out No long er eligible based on patient's age to complete this topic IPV Vaccines Aged Out No longer eligi ble based on patient's age to complete this topic MMR Vaccines Aged Out No longer eligi ble based on patient's age to complete this topic Meningococcal ACWY Vaccine Aged Out N o longer eligible based on patient's age to complete this topic Meningococcal B Vaccine Aged Out No l onger eligible based on patient's age to complete this topic Pneumococcal Vaccine: Pediat rics (0 to 5 Years) and At-Risk Patients (6 to 49 Years) Aged Out No longer eligible b ased on patient's age to complete this topic RSV Immunization Patients Un edilberto 20 months Aged Out No longer eligible b ased on patient's age to complete this topic Varicella Vaccines Aged Out No longer eligible based on patient's age to complete this topic
--- OUTSIDE RECORDS SUMMARY | 2024-11-25 13:58 | XMS_ITS | Clinical Summary ---
Author Organization [employer] Address [address] [place] [address] Care Team Providers Care Airline Attendant Name Role Phone Unavailable Primary Care Provider Unavailabl e Social History Tobacco Use Types Packs/Day Years Used Date Smoking Tobacco: Never Assessed Sex and Gender Information Value Date Recorded Sex Assigned at Male 02/07/2022 10:23 AM EDT Legal Sex Male 10:23 AM EDT Gender Identity Not on file Sexual Orientation Not on file Plan of Treatment Health Maintenance Due Date Last Done Comments Depression Screening 1995 HIV Screening 1995 SDOH Screening 1995 Disability Screening 1995 Alcohol/Substance Use Screening 2007 Tobacco Screening 2007 Family Planning (PISQ) 09/30/2010 HPV Vaccines (1 - Male 3-dos e series) 09/30/2010 Hepatitis C Screening 09/30/2013 DTaP/Tdap/Td Vaccines (1 - Tdap) 09/30/2014 Hepatitis B Vaccines (1 of 3 - 19+ 3-dose series) 09/30/2014 COVID-19 Vaccine (1 - 2023-2 5 season) 2023 Influenza Vaccine (#1) 2024 Zoster Vaccines (1 of 2) 09/30/2045 RSV Patients and Pa tients Aged 60 years or older (1 - 1-dose 75+ series) 09/30/2070 HIB Vaccines Aged Out No longer eligi [...] patient's age to complete this topic Meningococcal Vaccine Aged Out No ijeoma germán eligible based on patient's age to complete this topic Pneumococcal Vaccine: Pediat rics (0 to 5 Years) and At-Risk Patients (6 to 49) Years Aged Out No longer eligible b ased on patient's age to complete this topic RSV under 20 months Aged Out No longe r eligible based on patient's age to complete this topic Rotavirus Vaccines Aged Out No longer eligible based on patient's age to complete this topic Insurance [facility]
--- OUTSIDE RECORDS SUMMARY | 2024-11-25 13:58 | XMS_ITS | Encounter Summary ---
Author Organization [facility] Address [address] [place] [id number] Phone Care Team Providers Care Reproductive Surgeon Name Role Phone Wellington Jolly MD Primary Care Provider [phone] Encounter Details Date Type Department Care Team (Late st Contact Info) Description 12/29/2011 Documentation EM Family Medicine [address] [place], [place] [phone] Family Medicine, Physician [address] [place], [place] [address] Social History Tobacco Use Types Packs/Day Years Used Date Smoking Tobacco: Never Assessed Sex and Gender Information Value Date Recorded Sex Assigned at Not on file Legal Sex Male 5:16 PM EDT Gender Identity Not on file Sexual Orientation Not on file documented as of this encounter Plan of Treatment Not on file documented as of this encounter Visit Diagnoses Not on filedocumented in this encounter Care Teams Reproductive Surgeon Relationship Specialty Start Date End Date Wellington Jolly MD [address] [place] [address] [place] [id number] PCP - General 11/18/16 10/03/22 documented as of this encounter
--- OUTSIDE RECORDS SUMMARY | 2024-11-25 13:58 | XMS_ITS | Clinical Summary ---
Author Organization [facility] Address [address] [place] [address] Phone Care Team Providers Care Ekg Tech Name Role Phone Unknown, Unknown Primary Care Provider Jessica perkins Allergies Active Allergy Reactions Criticality Noted Date Comments Amoxicillin Hives,Rash,Shortness Of Breath,Swelling High 12/14/2022 Medications No known medications Active Problems No known active problems Social History Tobacco Use Types Packs/Day Years Used Date Smoking Tobacco: Never Smokeless Tobacco: Never Tobacco Cessation:Counseling Given: Not Answered Alcohol Use Standard Drinks/Week Comments Not Currently 0 (1 standard drink = 0.6 oz pur e alcohol) Education Answer Date Recorded Are you interested in more education? Not on todd e 09/01/2022 Are you concerned about learning? Not on file 09/01/2022 No 09/01/2022 No 09/01/2022 Digital Access Answer Date Recorded No 09/01/2022 No 09/01/2022 Reliable internet access at home? Not on file 09/01/2022 Device with a working camera? Not on file Sex and Gender Information Value Date Recorded Sex Assigned at Not on file Legal Sex Male 9:46 AM EDT Gender Identity Not on file Sexual Orientation Not on file Plan of Treatment Health Maintenance Due Date Last Done Comments DEPRESSION SCREENING 2007 HEPATITIS C SCREENING 09/30/2013 HIV ONE-TIME SCREENING (18-6 5 YEARS) 09/30/2013 Adult Td,Tdap Booster 01/27/2016 01/26/2006 COVID-19 VACCINE (2023-2 5 season) 2023 SMOKING STATUS SCREENING (On ce After 26 Yrs) Completed 12/14/2022 HEPATITIS A VACCINES Aged Out No long er eligible based on patient's age to complete this topic HIB VACCINES Aged Out No longer eligi ble based on patient's age to complete this topic MENINGOCOCCAL VACCINES (ACWY) Aged Out No longer eligible based on patient's age to complete this topic MENINGOCOCCAL VACCINES (B) Aged Out N o longer eligible based on patient's age to complete this topic PNEUMOCOCCAL VACCINES (0-49 years) Aged Out No longer eligible based on patient's age to complete this topic Medical Devices Not on file Insurance MEDICARE [facility] Care Teams Ekg Tech Relationship Specialty Start Date End Date Unknown, Unknown, PCP - General 09/01/22 Additional Source Comments The information contained in this document represents components of the legal health record. It is not the complete legal health record.[facility]
== END 2024-11-25 13:11 | disposition left against medical advice (07) ==
PROVIDERS: Physician Assistant Medical; Emergency Provider Emergency Medicine
DX: L03.211 Cellulitis of face (principal); R21 Rash and other nonspecific skin eruption; E16.2 Hypoglycemia, unspecified; T78.40XA Allergy, unspecified, initial encounter; X58.XXXA Exposure to other specified factors, initial encounter; Z03.818 Encounter for observation for suspected exposure to other biological agents ruled out
CPT/HCPCS: 80053; 82947; 83735; 85025; 87637; 99282; 99283